=== PATIENT | female | born 1955 | race Caucasian/White ===

== ENCOUNTER 2024-05-19 16:00 | Outpatient (CLI) | payer OTHER | END 2024-05-19 16:01 | disposition home or self-care (01) | LOC: SLEEPLAB 16:00 | PROVIDERS: ATTEND Student in an Organized Health Care Education/Training Program | DX: G47.33 Obstructive sleep apnea (adult) (pediatric) (principal); R53.83 Other fatigue; F32.A Depression, unspecified; R06.83 Snoring; I10 Essential (primary) hypertension; G47.10 Hypersomnia, unspecified; G47.00 Insomnia, unspecified | CPT/HCPCS: 95811 ==